=== PATIENT | male | born 1985 ===

== ENCOUNTER 2018-09-04 05:18 | Emergency (ER) | payer OTHER ==
[2018-09-04 05:32] VITALS: RESP 16
[2018-09-04] MEDS ORDERED: Sodium Chloride 0.9% 1,000 ML IV STA (06:02)
--- NOTE | 2018-09-04 06:16 | ED PDOC ---
HPI: Headache Time Seen by Provider: 09/04/18 05:56 Chief Complaint (Nursing): Fever Chief Complaint (Provider): Headache History Per: Patient History/Exam Limitations: no limitations Onset/Duration Of Symptoms: Days (x 4) Current Symptoms Are (Timing): Still Present Quality: "Pain" Preceeding Symptoms: denies: Visual Disturbances Associated Symptoms: denies: Photophobia Additional Complaint(s): 32 year old male presents to the ED with a headache for 4 days associated with a fever. Patient reports that he has trouble sleeping because of the headache and often gets awoken by the pain when he finally sleeps. He did not receive the flu shot. Denies a history and family history of neurological problems and photophobia. Offers no other complaints. PMD: none provided - Risk Factors SAH Risk Factors: Neg: Worst Headache Of Life Past Medical History Reviewed: Historical Data, Nursing Documentation, Vital Signs Vital Signs: Last Vital Signs Temp 101.3 F H 09/04/18 05:27 Pulse 112 H 09/04/18 05:27 Resp 16 09/04/18 05:27 BP 148/81 09/04/18 05:27 Pulse Ox 95 09/04/18 05:27 - Medical History PMH: No Chronic Diseases Denies: Chronic Kidney Disease - Surgical History Surgical History: No Surg Hx - Family History Family History: States: Unknown Family Hx - Immunization History Hx Influenza Vaccination: No - Home Medications Home Medications: Ambulatory Orders Medication Instructions Recorded Ibuprofen [Motrin Tab] 800 mg PO Q6H PRN #20 tab 06/05/16 diaZEpam [Valium] 5 mg PO Q6H PRN #15 tab 06/05/16 - Allergies Allergies/Adverse Reactions: Allergies Allergy/AdvReac Type Severity Reaction Status Date / Time No Known Allergies Allergy Verified 04/25/14 18:31 Review of Systems ROS Statement: Except As Marked, All Systems Reviewed And Found Negative Constitutional: Positive for: Fever Eyes: Negative for: Pain, Vision Change Neurological: Positive for: Headache Physical Exam - Reviewed Nursing Documentation Reviewed: Yes Vital Signs Reviewed: Yes - Physical Exam Appears: Positive for: No Acute Distress Head Exam: Positive for: ATRAUMATIC, NORMAL INSPECTION, NORMOCEPHALIC Skin: Positive for: Normal Color, Warm, Dry Eye Exam: Positive for: EOMI, Normal appearance, PERRL Neck: Positive for: Normal, Painless ROM, Supple Cardiovascular/Chest: Positive for: Regular Rate, Rhythm. Negative for: Murmur Respiratory: Positive for: Normal Breath Sounds. Negative for: Wheezing, Respiratory Distress Gastrointestinal/Abdominal: Positive for: Normal Exam, Soft. Negative for: Tenderness, Guarding Back: Positive for: Normal Inspection. Negative for: L CVA Tenderness, R CVA Tenderness, Vertebral Tenderness Extremity: Positive for: Normal ROM (upper and lower). Negative for: Deformity Neurologic/Psych: Positive for: Alert, Oriented (x 3). Negative for: Motor/Sensory Deficits - ECG O2 Sat by Pulse Oximetry: 95 (RA) Pulse Ox Interpretation: Normal Medical Decision Making Medical Decision Makin:01 MDM: workup for influenza Labs sent including flu swab IV Toradol and Reglan given for pain Reassess patient 0700 Patient will be signed out to Dr. Stahl pending symptom resolution and labs. Consider workup if symptoms have not resolved. Scribe Attestation: Documented by Christina Ramos acting as a scribe for Ondina Corcoran MD Provider Scribe Attestation: All medical record entries made by the Scribe were at my direction and personally dictated by me. I have reviewed the chart and agree that the record accurately reflects my personal performance of the history, physical exam, medical decision making, and the department course for this patient. I have also personally directed, reviewed, and agree with the discharge instructions and disposition. Disposition - Patient ED Disposition Is Patient to be Admitted: Transfer of Care - Disposition Disposition: Transfer of Care Disposition Time: 07:00 Forms: [employer] (Latvian) Patient Signed Over To: Caesar Stahl
--- NOTE | 2018-09-04 07:10 | ED PDOC ---
- Laboratory Results Result Diagrams: 09/04/18 06:31 09/04/18 06:31 - ECG O2 Sat by Pulse Oximetry: 95 (RA) Pulse Ox Interpretation: Normal Medical Decision Making Medical Decision Makin Patient will be signed out by Dr. Corcoran, pending symptom resolution and labs. Consider workup if symptoms have not resolved. 09 [employer] used Patient feeling much better, symptoms resolved Results given Advised rest, fluids, NSAIDs Referral given to clinic Very well appearing upon discharge Scribe Attestation: Documented by Sakina White, acting as a scribe for Caesar Stahl MD. Provider Scribe Attestation: All medical record entries made by the Scribe were at my direction and personally dictated by me. I have reviewed the chart and agree that the record accurately reflects my personal performance of the history, physical exam, medical decision making, and the department course for this patient. I have also personally directed, reviewed, and agree with the discharge instructions and disposition. Disposition - Clinical Impression Clinical Impression: Upper respiratory infection - POA Present On Arrival: None - Disposition Referrals: [facility] [Outside] Disposition: Routine/Home Disposition Time: 09:42 Condition: STABLE Prescriptions: Ibuprofen [Motrin Tab] 600 mg PO Q6 #30 tab Instructions: Viral Upper Respiratory Infection, Adult (DC) Forms: [facility] (Ukrainian) Print Language: PERUVIAN
[2018-09-04 07:23] VITALS: TEMP 99.5
[2018-09-04 07:30] LABS: BASO % 0.3 % (0.0-2.0); EOS % 0.1 % (0.0-4.0); HEMOGLOBIN 14.8 g/dL (12.0-18.0); LYMPH % 10.1 % (20.0-40.0); MEAN CELL VOLUME 84.6 fl (80.0-94.0); MEAN CORPUSCULAR HEMOGLOBIN 29.3 pg (27.0-31.0); MEAN CORPUSCULAR HGB CONC 34.7 g/dL (33.0-37.0); MEAN PLATELET VOLUME 7.6 fl (7.2-11.7); MONO # 1.3 K/uL (0.0-0.8); MONO % 13.4 % (0.0-10.0); NEUT # 7.3 K/uL (1.8-7.0); NEUT % 76.1 % (50.0-75.0); NRBC % 0.1 % (0.0-0.0); RBC 5.04 Mil/uL (4.40-5.90); RED CELL DISTRIBUTION WIDTH 13.1 % (11.5-14.5); WHITE BLOOD COUNT 9.6 K/uL (4.8-10.8)
[2018-09-04 07:45] LABS: BLOOD UREA NITROGEN 13 mg/dl (9-20); GFR NON-AFRICAN AMERICAN > 60
[2018-09-04 09:47] VITALS: BP 127/73; PULSE 70; O2SAT 97
== END 2018-09-04 09:46 | disposition home or self-care (01) ==
LOC: H.ER 05:18
DX: J06.9 Acute upper respiratory infection, unspecified (principal)
CPT/HCPCS: 80048; 85025; 87804; 96361; 96374; 96375; 99284; J1885; J2765; J7030